=== PATIENT | female | born 1960 | race Caucasian/White ===

== ENCOUNTER 2019-02-04 20:53 | Emergency (ER) | payer BC ==
[~2019-02-04] VITALS: Ht 167.6 cm; Wt 52.6 kg
--- NOTE | 2019-02-04 21:10 | NUR ---
Patient ambulated with stable gait. Speech is clear, speaks in complete sentences. A/Ox4. No neuro deficits noted. Patient here for wound check on incision site above L.Knee s/p skin cancer procedure. Respiratory even and unlabored, no cough no sob. No GI/ distress. Wound site was covered with a bandage, but appears to be open, no discharge noted, no crusting. Patient in bed at lowest position, sr upx2, call light within reach. Fall precautions implemented per protocol. Relative at bedside accompanying patient.
[2019-02-04] MEDS ORDERED: LIDOCAINE HCL 2% 20 ML VIAL TP ONE (21:15)
[2019-02-04] MEDS ORDERED: LET TOPICAL SOLUTION 8 ML UDC TOP ONE (21:15)
[2019-02-04] MEDS ORDERED: SODIUM BICARBONATE 4.2 % (NEUT) 5 ML VIAL TP ONE (21:15)
[2019-02-04] MEDS ORDERED: LET TOPICAL SOLUTION 8 ML UDC ONE (21:18)
[2019-02-04] MEDS ORDERED: NEOMY/BACITRA/POLYMYXIN B OINT UD PACKET TP ONE ×2 (22:14→22:15)
--- NOTE | 2019-02-04 22:15 | NUR ---
Patient discharged to home in stable conditon. Written and verbal after care instructions given. Patient verbalizes understanding of instructions. Pt. d/c per MD order, d/c papers signed, all belongings w/ pt., ID band removed, ambulated off unit w/ steady gait, NAD
== END 2019-02-04 22:18 | disposition home or self-care (01) ==
LOC: ER 20:54
DX: T81.31XA Disruption of external operation (surgical) wound, not elsewhere classified, initial encounter (principal); J45.909 Unspecified asthma, uncomplicated; Z88.2 Allergy status to sulfonamides; Z88.1 Allergy status to other antibiotic agents; Z88.8 Allergy status to other drugs, medicaments and biological substances
CPT/HCPCS: 12020; 99284; J3490; A4217; A4663